=== PATIENT | female | born 1975 | race African-American/Black ===

== ENCOUNTER 2017-12-23 08:16 | Inpatient (IN) | payer OTHER ==
[~2017-12-23] VITALS: Ht 167.6 cm; Wt 77.1 kg
[2017-12-23] VITALS (8 sets, daily range): BP systolic 124–158; BP diastolic 78–107
--- NOTE | ~2017-12-23 | EKG ---
[address] [place] [address] ELECTROCARDIOGRAM REPORT Name: LYNDSEY NAVARRETE Room #: 423-1 ADM IN M.R.#: [id number] Admission: 12/23/17 Attend Phys: Nito Whyte MD Discharge: Date of : 73 Report #: [id number] THIS REPORT FOR: //name// [facility] ED Test Date: 2017-12-23 Test Time: 10:26:45 Pat Name: LYNDSEY NAVARRETE Department: Room: [facility] Gender: F Documentation Specialist: VIKTORIYA : 1975 Requested By: Marcos Booth Order Number: [id number] MD: Foster Hwang Measurements Intervals [place] Rate: 67 P: 47 NV: 134 QRS: -23 QRSD: 105 T: 12 QT: 439 QTc: 464 Interpretive Statements Sinus rhythm RSR' in V1 or V2, probably normal variant Cannot rule out Inferior infarct, old No previous ECG available for comparison Electronically Signed On 12-23-2017 17:03:54 CDT by Foster Hwang [email or web address] <ELECTRONICALLY SIGNED> By: Foster Hwang MD, [facility] 12/23/17 1703 1026 102 Foster Hwang MD, [facility] /EPI
[2017-12-23 09:21] LABS: ABSOLUTE NEUTROPHILS 3.2 thou/uL (1.4-8.2); BASOPHILS 1.4 % (0.0-2.0); EOSINOPHILS 2.7 % (0.0-3.0); HEMATOCRIT 43.1 % (37.0-47.0); HEMOGLOBIN 15.3 gm/dL (12.0-15.0); LYMPHOCYTES 43.2 % (24.0-44.0); MCH 33.2 pg (26.0-34.0); MCHC 35.4 g/dL (28.0-37.0); MCV 93.9 fL (80.0-100.0); MONOCYTES 6.6 % (1.0-8.0); PLATELET COUNT 357 thou/uL (150-400); POLYS 46.1 % (36.0-66.0); RBC 4.59 mil/uL (4.20-5.00); RDW 19.6 % (10.5-14.5); WBC 6.9 thou/uL (4.0-11.0)
[2017-12-23 09:25] LABS: CALCIUM 8.8 mg/dL (8.5-10.1); CREATININE 0.9 mg/dL (0.6-1.0); POTASSIUM 4.2 mmol/L (3.5-5.1)
[2017-12-23 09:57] LABS: TOTAL PROTEIN 8.4 g/dL (6.4-8.2)
[2017-12-23 10:10] LABS: TOTAL BILIRUBIN 1.2 mg/dL (<0.1-1.0)
[2017-12-23 10:11] LABS: ALBUMIN 3.7 g/dL (3.4-5.0)
[2017-12-23 18:10] LABS: GLYCOHEMOGLOBIN (HGB A1C) 5.2 % (4.8-5.6)
[2017-12-23 22:55] LABS: URINE BILIRUBIN NEGATIVE (Negative); URINE BLOOD TRACE (Negative); URINE CLARITY CLEAR; URINE COLOR YELLOW; URINE GLUCOSE-RANDOM* NEGATIVE (Negative); URINE KETONES NEGATIVE (Negative); URINE LEUKOCYTES-REFLEX NEGATIVE (Negative); URINE NITRITE-REFLEX NEGATIVE (Negative); URINE PROTEIN (DIPSTICK) NEGATIVE (Negative); URINE SPECIFIC GRAVITY <= 1.005 (1.005-1.035); URINE UROBILINOGEN 0.2 E.U./dl (0.2-1.0)
[2017-12-24 02:59] VITALS: BP 157/101
[2017-12-24 06:20] LABS: ALBUMIN 3.1 g/dL (3.4-5.0); ANION GAP 9 mmol/L (7-16); BUN 6 mg/dL (7-18); CALCIUM 8.4 mg/dL (8.5-10.1); CHLORIDE 102 mmol/L (98-107); CHOLESTEROL 193 mg/dL (<200); CO2 26 mmol/L (21-32); CREATININE 0.8 mg/dL (0.6-1.0); GLUCOSE 100 mg/dL (74-106); HDL CHOLESTEROL 21 mg/dL (>40); LIPASE 379 U/L (73-393); POTASSIUM 3.4 mmol/L (3.5-5.1); SGOT 157 U/L (15-37); SGPT 72 U/L (30-65); SODIUM 137 mmol/L (136-145); TC:HDL 9.2 Ratio (Not establshd); TOTAL BILIRUBIN 1.5 mg/dL (<0.1-1.0); TOTAL PROTEIN 6.1 g/dL (6.4-8.2); TRIGLYCERIDE 770 mg/dL (<150); VLDL 154 mg/dL (<40)
[2017-12-24 07:38] VITALS: BP 149/110
[2017-12-24 15:20] VITALS: BP 135/96
[2017-12-24 20:00] VITALS: BP 140/102
[2017-12-25 00:18] VITALS: BP 135/97
[2017-12-25 04:00] VITALS: BP 139/104
[2017-12-25 05:49] LABS: HEMATOCRIT 37.1 % (37.0-47.0); MCH 31.8 pg (26.0-34.0); MCHC 33.4 g/dL (28.0-37.0); RDW 18.9 % (10.5-14.5); WBC 5.4 thou/uL (4.0-11.0)
[2017-12-25 05:52] LABS: HEMOGLOBIN 12.4 gm/dL (12.0-15.0)
[2017-12-25 07:11] LABS: ABSOLUTE NEUTROPHILS 2.8 thou/uL (1.4-8.2); PLATELET COUNT 251 thou/uL (150-400)
[2017-12-25 07:12] VITALS: BP 143/94
[2017-12-25 07:14] LABS: PLATELET ESTIMATE NORMAL
[2017-12-25 07:17] LABS: ANISOCYTOSIS 2+
[2017-12-25 07:18] LABS: POIKILOCYTOSIS 1+; TARGET CELLS FEW
[2017-12-25 16:20] VITALS: BP 164/95
[2017-12-25] MEDS ORDERED: GEMFIBROZIL 60600 M1 PO (17:40)
[2017-12-25 18:29] VITALS: BP 164/95
== END 2017-12-25 19:30 | disposition home or self-care (01) | DRG 439 ==
LOC: ER 08:16 → EROBS 10:38 → 4E 10:38
PROVIDERS: Emergency Medicine; Hospitalist; Nurse Practitioner
DX: K85.90 Acute pancreatitis without necrosis or infection, unspecified (principal); E87.1 Hypo-osmolality and hyponatremia; F10.10 Alcohol abuse, uncomplicated; Y90.9 Presence of alcohol in blood, level not specified; F17.210 Nicotine dependence, cigarettes, uncomplicated; E78.1 Pure hyperglyceridemia; R74.0 Nonspecific elevation of levels of transaminase and lactic acid dehydrogenase [LDH]; F32.9 Major depressive disorder, single episode, unspecified; F41.9 Anxiety disorder, unspecified; Z88.6 Allergy status to analgesic agent; Z88.0 Allergy status to penicillin; Z90.721 Acquired absence of ovaries, unilateral; Z79.899 Other long term (current) drug therapy
CPT/HCPCS: 10084

== ENCOUNTER 2021-02-19 07:00 | Emergency (ER) | payer OTHER ==
[~2021-02-19] VITALS: Ht 165.1 cm; Wt 68.0 kg
[~2021-02-19 07:00] MED LIST: GEMFIBROZIL 60600 M1 PO
[2021-02-19 07:24] LABS: ABSOLUTE NEUTROPHILS 8.9 thou/uL (1.4-8.2); BASOPHILS 0.4 % (0.0-2.0); HEMATOCRIT 37.5 % (37.0-47.0); HEMOGLOBIN 12.3 gm/dL (12.0-15.0); LYMPHOCYTES 19.5 % (24.0-44.0); MCH 33.8 pg (26.0-34.0); MCHC 32.8 g/dL (28.0-37.0); MONOCYTES 11.4 % (1.0-8.0); PLATELET COUNT 233 thou/uL (150-400); POLYS 68.7 % (36.0-66.0); RBC 3.64 mil/uL (4.20-5.00); RDW 17.2 % (10.5-14.5); WBC 12.9 thou/uL (4.0-11.0)
[2021-02-19 07:32] LABS: ANION GAP 17 mmol/L (7-16); BUN 12 mg/dL (7-18); CALCIUM 9.7 mg/dL (8.5-10.1); CHLORIDE 99 mmol/L (98-107); CO2 25 mmol/L (21-32); CREATININE 1.4 mg/dL (0.6-1.0); GLUCOSE 145 mg/dL (74-106); POTASSIUM 3.5 mmol/L (3.5-5.1); SODIUM 141 mmol/L (136-145)
[2021-02-19 07:39] LABS: ALBUMIN 4.8 g/dL (3.4-5.0); SALICYLATE 4.2 mg/dL (2.8-20.0); SGOT 69 U/L (15-37); SGPT 42 U/L (14-59); TOTAL BILIRUBIN 1.1 mg/dL (0.2-1.0); TOTAL PROTEIN 8.9 g/dL (6.4-8.2)
[2021-02-19 07:41] LABS: URINE BILIRUBIN NEGATIVE (Negative); URINE BLOOD TRACE (Negative); URINE CLARITY SL CLOUDY; URINE COLOR YELLOW; URINE GLUCOSE-RANDOM* NEGATIVE (Negative); URINE KETONES 1+ (Negative); URINE PROTEIN (DIPSTICK) TRACE (Negative)
[2021-02-19 07:47] LABS: URINE LEUKOCYTES-REFLEX 1+ (Negative); URINE NITRITE-REFLEX POSITIVE (Negative)
[2021-02-19 07:57] LABS: AMP/METHAMP Negative (Negative); BARBITURATES Negative (Negative); BENZODIAZEPINES Negative (Negative); COCAINE Negative (Negative); METHADONE Negative (Negative); OPIATES Negative (Negative); PCP Negative (Negative)
[2021-02-19 08:01] LABS: SQUAMOUS >10 Many /LPF (0-3)
[2021-02-19 08:03] LABS: BACTERIA-REFLEX >30 Many /HPF (None Seen); CASTS None Seen /LPF (None Seen); CRYSTALS None Seen /LPF (None Seen)
[2021-02-19 08:04] LABS: URINE RBC None Seen /HPF (NONE SEEN)
[2021-02-19 10:19] LABS: PLATELET ESTIMATE NORMAL; POLYCHROMASIA 2+
[2021-02-19 10:20] LABS: ANISOCYTOSIS 2+; MACROCYTES 1+
[2021-02-20 08:54] VITALS: BP 120/83
== END 2021-02-20 08:54 | disposition home or self-care (01) ==
LOC: ER 07:00
PROVIDERS: Emergency Medicine
DX: F23 Brief psychotic disorder (principal); Z20.822 Contact with and (suspected) exposure to COVID-19; N39.0 Urinary tract infection, site not specified; F41.9 Anxiety disorder, unspecified; F17.210 Nicotine dependence, cigarettes, uncomplicated; Z98.890 Other specified postprocedural states; Z79.899 Other long term (current) drug therapy; Z88.5 Allergy status to narcotic agent; Z88.0 Allergy status to penicillin; Z90.79 Acquired absence of other genital organ(s); Z87.898 Personal history of other specified conditions